=== PATIENT | male | born 1960 | race Caucasian/White ===

== ENCOUNTER 2023-02-28 08:19 | Day surgery (SDC) | payer OTHER ==
[~2023-02-28] VITALS: Ht 170.2 cm; Wt 89.1 kg
--- NOTE | 2023-02-28 07:15 | NUR ---
02/28/23 [address] KIRKPATRICK, SEE ANESTHESIA RECORDS.
[~2023-02-28 08:19] MED LIST: MULT50L PO; OMEG1CAP30
--- NOTE | 2023-02-28 09:05 | NUR ---
Amb[facility] in [facility] warming gown applied. Patient states colon prep results clear. History, Chart, Medications and Allergies reviewed before start of procedure.Lungs clear T/O to Auscultation. Patient confirms NPO status and agrees with scheduled surgery. Pre-Op teaching done. Pt verbalizes understanding. Patient States Post-Procedure ride home has been arranged.
[2023-02-28 09:06] VITALS: BP 136/82
[2023-02-28 10:15] VITALS: BP 113/64
[2023-02-28 10:33] VITALS: BP 128/95
--- NOTE | 2023-02-28 10:46 | NUR ---
DISCHARGE SUMMARY PT A&OX4, VSS/RA, NED PO H20, IV DC'D, DC INS PROVIDED, PT AND REP UNDERSTANDING THOSE INSTRUCTIONS. LEFT FLOOR VIA WC WITH RN, TO GO HOME, WITH ALL PERSONAL POSSESSIONS INCLUDING DC PACKET.
== END 2023-02-28 23:04 | disposition home or self-care (01) ==
LOC: ORSCMMR 08:19 → ORD 09:30 → ORSCMMR 09:30
PROVIDERS: Internal Medicine Gastroenterology
PROC: 0DBK8ZX Excision of Ascending Colon, Via Natural or Artificial Opening Endoscopic, Diagnostic (ICD-10-PCS; principal; 2023-02-28 09:30)
PROC: 0DBM8ZX Excision of Descending Colon, Via Natural or Artificial Opening Endoscopic, Diagnostic (ICD-10-PCS; principal; 2023-02-28 09:30)
PROC: 0DBN8ZX Excision of Sigmoid Colon, Via Natural or Artificial Opening Endoscopic, Diagnostic (ICD-10-PCS; principal; 2023-02-28 09:30)
DX: Z12.11 Encounter for screening for malignant neoplasm of colon (principal); D12.5 Benign neoplasm of sigmoid colon; K63.5 Polyp of colon; K51.40 Inflammatory polyps of colon without complications; K57.30 Diverticulosis of large intestine without perforation or abscess without bleeding; Z86.010 Personal history of colon polyps; G47.33 Obstructive sleep apnea (adult) (pediatric)
CPT/HCPCS: 88305; J2001; J2704; J7120